=== PATIENT | female | born 1995 | race African-American/Black ===

== ENCOUNTER 2016-08-16 15:21 | Emergency (ER) | payer OTHER ==
[~2016-08-16] VITALS: Ht 190.5 cm; Wt 79.9 kg
[2016-08-16 15:25] VITALS: TEMP 36.9; Ht 190.5 cm; Wt 79.9 kg
[2016-08-16 16:30] LABS: BASO % 0.5 %; BASO ABS # 0.03 K/uL (0-0.2); COMPLETE YES; EOS % 1.7 %; HEMATOCRIT 33.5 % (37-47); IG% 0.3 %; LYMPH % 45.5 %; LYMPH ABS # 3.01 K/uL (1.2-3.4); MEAN CELL VOLUME 87.7 fL (80-100); MEAN CORPUSCULAR HEMOGLOBIN 30.6 pg (25-34); MEAN CORPUSCULAR HGB CONC 34.9 g/dl (32-36); MEAN PLATELET VOLUME 9.5 fL (7.4-10.4); MONO % 9.1 %; NEUT % 42.9 %; PLATELET COUNT 183 K/uL (130-400); RED BLOOD COUNT 3.82 M/uL (4.2-5.4); WHITE BLOOD COUNT 6.61 K/uL (4.8-10.8)
--- NOTE | 2016-08-16 16:36 | DIAGNOSTIC IMAGING REPORT ---
CT HEAD WITHOUT CONTRAST (CT) CLINICAL HISTORY: Left-sided visual loss COMPARISON STUDY: No previous studies for comparison. TECHNIQUE: Axial CT of the brain is performed from the vertex to the skull base. IV contrast was not administered for this examination. CT DOSE: 537.48 mGy.cm FINDINGS: No intra or extra-axial mass lesions are visualized. There is no CT evidence of acute cortical infarction. There is no evidence of midline shift. There is no acute hemorrhage. No calvarial fractures are visualized. The visualized portions of the orbits are unremarkable. There is no evidence of pathologic ventricular dilatation. There is no evidence of acute sinusitis Subtle decreased attenuation of the left external capsule, may be artifactual. It is unlikely to represent an acute finding IMPRESSION: No acute intracranial findings Electronically signed by: Odell Tom M.D. 08/16/2016 4:34 PM Dictated Date/Time: 08/16/2016 4:32 PM
[2016-08-16 16:48] LABS: INR 1.3 (0.9-1.1); PROTHROMBIN TIME (PATIENT) 13.8 SECONDS (9.0-12.0)
[2016-08-16 16:49] LABS: ALT/SGPT 57 U/L (12-78); BLOOD UREA NITROGEN 17 mg/dl (7-18); BUN/CREATININE RATIO 18.8 (10-20); CARBON DIOXIDE 27 mmol/L (21-32); CHLORIDE 106 mmol/L (98-107); CREATININE 0.91 mg/dl (0.60-1.20); GLUCOSE 82 mg/dl (70-99); POTASSIUM 3.6 mmol/L (3.5-5.1); SODIUM 139 mmol/L (136-145)
[2016-08-16 16:53] LABS: ALB/GLOB RATIO 0.8 (0.9-2); ALKALINE PHOSPHATASE 65 U/L (45-117); AST/SGOT 35 U/L (15-37)
--- NOTE | 2016-08-16 18:06 | DIAGNOSTIC IMAGING REPORT ---
MRI OF THE BRAIN WITHOUT CONTRAST CLINICAL HISTORY: Left eye visual loss.] Amorosis fugax. COMPARISON STUDY: Noncontrast CT scan dated 08/16/2016 FINDINGS: Sagittal T1, axial diffusion, proton density and T2 weighted axial, coronal FLAIR, and axial T1-weighted images were acquired. No intra or extra-axial mass lesions are visualized Axial diffusion-weighted images reveal no evidence of acute or subacute infarction. There is no evidence of ventricular dilatation. Proton density T2-weighted and FLAIR images reveal a nonspecific 4 mm focus of increased T2 signal within the left frontal white matter. There is a second 5 mm focus of increased signal within the left parietal white matter. There are no abnormal flow voids. IMPRESSION: 2 nonspecific subcentimeter foci of increased FLAIR signal within the left hemispheric white matter. Otherwise normal noncontrast MRI the brain. Electronically signed by: Odell Tom M.D. 08/16/2016 6:04 PM Dictated Date/Time: 08/16/2016 6:01 PM
[2016-08-16] MEDS ORDERED: OPTIRAY 320 IV PRN (19:15)
--- NOTE | 2016-08-16 20:00 | DIAGNOSTIC IMAGING REPORT ---
CT NECK ANGIO WITH CONTRAST CLINICAL HISTORY: Transient left eye visual loss COMPARISON STUDY: No previous studies for comparison. TECHNIQUE: CT angiography was performed from the aortic arch to the skull base. MIP imaging was performed. The patient was scanned in a dynamic helical fashion during intravenous administration of 115 cc of Optiray 320. CT DOSE: 548.40 mGy.cm Technique: CT angiogram of the carotid and vertebral arteries was obtained using intravenous contrast and 3-D reconstruction. NASCET criteria was utilized. Findings: The right carotid revealed no evidence of aneurysm and no evidence of dissection. There is no evidence of hemodynamic significant stenosis. The left carotid revealed no evidence of hemodynamic significant stenosis. There is no evidence of aneurysm. There is no evidence of dissection. There is no evidence of hemodynamically significant vertebral stenosis. There is no evidence of vertebral dissection. IMPRESSION: No evidence of hemodynamically significant carotid or vertebral artery stenosis. No evidence of dissection. Electronically signed by: Odell Tom M.D. 08/16/2016 7:58 PM Dictated Date/Time: 08/16/2016 7:55 PM
--- NOTE | 2016-08-16 20:02 | DIAGNOSTIC IMAGING REPORT ---
CT HEAD ANGIO WITH CONTRAST CLINICAL HISTORY: Transient left visual loss TECHNIQUE: CT angiography of the head was performed in a dynamic helical fashion during intravenous administration of 115 cc of Optiray 320. MIP imaging was performed CT DOSE: COMPARISON STUDY: Noncontrast head CT dated 08/16/2016 FINDINGS: There are no lesion suspicious for aneurysm. There are no major intracranial branch occlusions. The dural venous sinuses appear patent. IMPRESSION: Normal study. Electronically signed by: Odell Tom M.D. 08/16/2016 8:01 PM Dictated Date/Time: 08/16/2016 7:58 PM
--- NOTE | 2016-08-16 20:11 | EMERGENCY ROOM VISIT NOTE ---
History First contact with patient: 15:34 Chief Complaint: EYE ASSESSMENT Stated Complaint: EYE VISION TROUBLE History of Present Illness The patient is a 20 year old female who presents to the Emergency Room with complaints of 2 episodes of vision loss in the left eye. 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 She reports that a few weeks ago , she was getting ready for a cane when she lost the vision in the lower half of her left eye. She states that this area was completely black. This episode lasted for approximately 5 minutes, and then her vision will be returned. She reports that 2 days ago, she was at a concert when she again lost vision in the left eye. She reports that this time, she completely lost vision in the left eye. She states that it appeared black for approximately 5 minutes, then her vision returned. The patient has not had any headaches, blurred vision, slurred speech, facial drooping, numbness or weakness. She denies any symptoms at this time. She was evaluated by an pot feeder today who sent her here for further evaluation. She denies any history of vision problems and states that she has always had 20/20 vision. She believes that she was tested for sickle cell disease her freshman year at [employer]. She denies any history or family history of blood clotting disorders. She denies any significant past medical history. Review of Systems A complete 10-point Review of Systems was discussed with the patient, with pertinent positives and negatives listed in the History of Present Illness. All remaining Review of Systems questions can be considered negative unless otherwise specified. Social History Smoking Status: Never Smoker Alcohol Use: occasionally Marital Status: single Housing Status: lives with roommate Occupation Status: [employer] student Current/Historical Medications No Active Prescriptions or Reported Meds Allergies Coded Allergies: POLLEN (Unverified Allergy, Unknown, UNKNOWN, 08/16/16) Physical Exam Vital Signs Date Time Temp Pulse Resp B/P Pulse Ox O2 Delivery O2 Flow Rate FiO2 08/16/16 20:36 74 17 124/75 97 08/16/16 18:30 60 20 93/68 98 Room Air 08/16/16 15:25 36.9 49 18 103/55 100 Room Air Right Eye Acuity: 20/20 Left Eye Acuity: 20/20 Physical Exam VITALS: Vitals are noted on the nurse's note and reviewed by myself. Vital signs stable. GENERAL: This is a 20-year-old female, in no acute distress, nondiaphoretic, well-developed well-nourished. HEAD: Normocephalic atraumatic. EARS: External auditory canals clear, tympanic membranes pearly quinonez without erythema or effusion bilaterally. EYES: Pupils are fixed, dilated. Conjunctivae without injection, sclerae without icterus. Extraocular movements intact. Peripheral vision intact. MOUTH: Mucous membranes moist. Tonsils are not enlarged. Pharynx without erythema or exudate. NECK: Supple without nuchal rigidity. No lymphadenopathy. HEART: Regular rate and rhythm without murmurs gallops or rubs. LUNGS: Clear to auscultation bilaterally without wheezes, rales or rhonchi. MUSCULOSKELETAL: Full range of motion, strength 5/5 throughout. NEURO: Patient was alert and oriented to person place and time. Normal sensation to light and sharp touch. Deep tendon reflexes 2+ throughout. No focal neurological deficits. Medical Decision & Procedures ER Provider Diagnostic Interpretation: CT HEAD WITHOUT CONTRAST (CT) FINDINGS: No intra or extra-axial mass lesions are visualized. There is no CT evidence of acute cortical infarction. There is no evidence of midline shift. There is no acute hemorrhage. No calvarial fractures are visualized. The visualized portions of the orbits are unremarkable. There is no evidence of pathologic ventricular dilatation. There is no evidence of acute sinusitis Subtle decreased attenuation of the left external capsule, may be artifactual. It is unlikely to represent an acute finding IMPRESSION: No acute intracranial findings MRI OF THE BRAIN WITHOUT CONTRAST FINDINGS: Sagittal T1, axial diffusion, proton density and T2 weighted axial, coronal FLAIR, and axial T1-weighted images were acquired. No intra or extra-axial mass lesions are visualized Axial diffusion-weighted images reveal no evidence of acute or subacute infarction. There is no evidence of ventricular dilatation. Proton density T2-weighted and FLAIR images reveal a nonspecific 4 mm focus of increased T2 signal within the left frontal white matter. There is a second 5 mm focus of increased signal within the left parietal white matter. There are no abnormal flow voids. IMPRESSION: 2 nonspecific subcentimeter foci of increased FLAIR signal within the left hemispheric white matter. Otherwise normal noncontrast MRI the brain. CT NECK ANGIO WITH CONTRAST Findings: The right carotid revealed no evidence of aneurysm and no evidence of dissection. There is no evidence of hemodynamic significant stenosis. The left carotid revealed no evidence of hemodynamic significant stenosis. There is no evidence of aneurysm. There is no evidence of dissection. There is no evidence of hemodynamically significant vertebral stenosis. There is no evidence of vertebral dissection. IMPRESSION: No evidence of hemodynamically significant carotid or vertebral artery stenosis. No evidence of dissection. CT HEAD ANGIO WITH CONTRAST FINDINGS: There are no lesion suspicious for aneurysm. There are no major intracranial branch occlusions. The dural venous sinuses appear patent. IMPRESSION: Normal study. Laboratory Results 08/16/16 16:15 Red Blood Count 3.82, Mean Corpuscular Volume 87.7, Mean Corpuscular Hemoglobin 30.6, Mean Corpuscular Hemoglobin Concent 34.9, Mean Platelet Volume 9.5, Neutrophils (%) (Auto) 42.9, Lymphocytes (%) (Auto) 45.5, Monocytes (%) (Auto) 9.1, Eosinophils (%) (Auto) 1.7, Basophils (%) (Auto) 0.5, Neutrophils # (Auto) 2.84, Lymphocytes # (Auto) 3.01, Monocytes # (Auto) 0.60, Eosinophils # (Auto) 0.11, Basophils # (Auto) 0.03 08/16/16 16:15 Test 08/16/16 16:15 08/16/16 19:30 White Blood Count 6.61 K/uL (4.8-10.8) Red Blood Count 3.82 M/uL (4.2-5.4) Hemoglobin 11.7 g/dL (12.0-16.0) Hematocrit 33.5 % (37-47) Mean Corpuscular Volume 87.7 fL (80-100) Mean Corpuscular Hemoglobin 30.6 pg (25-34) Mean Corpuscular Hemoglobin Concent 34.9 g/dl (32-36) Platelet Count 183 K/uL (130-400) Mean Platelet Volume 9.5 fL (7.4-10.4) Neutrophils (%) (Auto) 42.9 % Lymphocytes (%) (Auto) 45.5 % Monocytes (%) (Auto) 9.1 % Eosinophils (%) (Auto) 1.7 % Basophils (%) (Auto) 0.5 % Neutrophils # (Auto) 2.84 K/uL (1.4-6.5) Lymphocytes # (Auto) 3.01 K/uL (1.2-3.4) Monocytes # (Auto) 0.60 K/uL (0.11-0.59) Eosinophils # (Auto) 0.11 K/uL (0-0.5) Basophils # (Auto) 0.03 K/uL (0-0.2) RDW Standard Deviation 39.8 fL (36.4-46.3) RDW Coefficient of Variation 12.4 % (11.5-14.5) Immature Granulocyte % (Auto) 0.3 % Immature Granulocyte # (Auto) 0.02 K/uL (0.00-0.02) Erythrocyte Sedimentation Rate 21 mm/hr (0-21) Sickle Cell Screen NEGATIVE (NEGATIVE) Prothrombin Time 13.8 SECONDS (9.0-12.0) Prothromb Time International Ratio 1.3 (0.9-1.1) Activated Partial Thromboplast Time 52.3 SECONDS (21.0-31.0) Partial Thromboplastin Ratio 2.0 Anion Gap 6.0 mmol/L (3-11) Est Creatinine Clear Calc Drug Dose 123.3 ml/min Estimated GFR () 104.5 Estimated GFR (Non- 90.2 BUN/Creatinine Ratio 18.8 (10-20) Calcium Level 9.0 mg/dl (8.5-10.1) Total Bilirubin 0.3 mg/dl (0.2-1) Aspartate Amino Transf (AST/SGOT) 35 U/L (15-37) Alanine Aminotransferase (ALT/SGPT) 57 U/L (12-78) Alkaline Phosphatase 65 U/L (45-117) Troponin I < 0.015 ng/ml (0-0.045) Total Protein 8.5 gm/dl (6.4-8.2) Albumin 3.8 gm/dl (3.4-5.0) Globulin 4.7 gm/dl (2.5-4.0) Albumin/Globulin Ratio 0.8 (0.9-2) Medical Decision Differential diagnosis includes CVA, TIA, retinal migraine, coagulation disorder , sickle cell disease, among others. The patient was evaluated as above. Labs were drawn and IV access was obtained. Imaging studies were performed and read by radiology as above. The patient was reassessed multiple times during their stay in the emergency department and remained in stable condition. The patient is a 20-year-old female who presents today sent by her pot feeder for evaluation of vision changes of the left eye. The patient describes 2 separate occasions of vision loss in her left eye. Labs revealed no leukocytosis. There was a mild anemia. No concerning electrolyte abnormalities. Coagulation studies were slightly elevated. CT scan of the head was unremarkable. MRI without contrast was also unremarkable. Given the patient's presentation, I was concerned about possible hypercoagulable disorder. For this reason, hypercoagulable panel and sickle cell screen were drawn and are pending. I did discuss this case with Dr. Duran, the neurologist forest economics professor. 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 The studies were performed and read by radiology and were negative. He did feel that the patient will need further outpatient workup including echocardiogram. I do agree that the patient will need further workup but I agree that this can be done as an outpatient given her negative workup today. Case was discussed with Dr. Sheppard, ED attending physician, who was in agreement with this assessment and treatment plan. All findings and treatment plan were discussed with the patient. She was instructed not to return to athletic activity until she was cleared by [facility] or her team doctor. She was instructed to follow-up with [facility] on Friday for further workup. She was instructed to return immediately if she has any further vision changes, headaches, numbness, weakness, facial drooping, blurred vision or slurred speech. She was instructed to begin a baby aspirin daily. The patient verbalized understanding of my assessment and treatment plan and was discharged home in good condition. Impression Primary Impression: Amaurosis fugax of left eye Departure Information Dispostion Home / Self-Care Condition GOOD Prescriptions No Active Prescriptions or Reported Meds Referrals No Doctor, Assigned (PCP) Patient Instructions My [facility] Additional Instructions Follow-up with your team doctor/[facility] on Friday for further evaluation. You will need further workup, including an echocardiogram and possibly other testing. We will notify you if any of your pending blood work is abnormal. No athletic activity until cleared by a primary care provider. Return to the nearest emergency department IMMEDIATELY if you develop any vision changes, headaches, numbness, weakness or any new/concerning symptoms.
[2016-08-16 20:36] VITALS: BP 124/75; PULSE 74; O2SAT 97
[2016-08-21 17:30] LABS: ANTITHROMBINIII ACTIVITY** 116 % activity (80-120); B2 GLYCOPROTEIN IGA 20 SAU (<=20); B2 GLYCOPROTEIN IGG 75 SGU (<=20); B2 GLYCOPROTEIN IGM 17 SMU (<=20); LUPUS ANTICOAGULANT** TC36573X Positive (Negative); PROTEIN C ACTIVITY** TC 1777X 113 % (70-180); PROTEIN S ACT(FUNCT)**1779X 87 % (60-140)
== END 2016-08-16 20:39 | disposition home or self-care (01) ==
LOC: C.EDD 15:23
DX: G45.3 Amaurosis fugax (principal); Z91.09 Other allergy status, other than to drugs and biological substances

== ENCOUNTER → 2016-08-28 | Outpatient (CLI) | payer OTHER ==
[2016-08-28 14:59] LABS: BASO % 0.4 %; BASO ABS # 0.03 K/uL (0-0.2); COMPLETE YES; EOS % 2.8 %; HEMATOCRIT 34.5 % (37-47); IG% 0.4 %; LYMPH % 41.3 %; LYMPH ABS # 2.78 K/uL (1.2-3.4); MEAN CORPUSCULAR HEMOGLOBIN 30.7 pg (25-34); MEAN CORPUSCULAR HGB CONC 35.7 g/dl (32-36); MEAN PLATELET VOLUME 9.4 fL (7.4-10.4); MONO % 7.1 %; PLATELET COUNT 216 K/uL (130-400); RED BLOOD COUNT 4.01 M/uL (4.2-5.4); WHITE BLOOD COUNT 6.73 K/uL (4.8-10.8)
[2016-08-28 15:02] LABS: ALT/SGPT 47 U/L (12-78); AST/SGOT 24 U/L (15-37); BLOOD UREA NITROGEN 15 mg/dl (7-18); BUN/CREATININE RATIO 16.6 (10-20); CALCIUM 9.4 mg/dl (8.5-10.1); CARBON DIOXIDE 27 mmol/L (21-32); CHLORIDE 105 mmol/L (98-107); GLUCOSE 93 mg/dl (70-99); POTASSIUM 3.9 mmol/L (3.5-5.1); SODIUM 139 mmol/L (136-145)
[2016-08-28 15:04] LABS: ALB/GLOB RATIO 0.8 (0.9-2); ALKALINE PHOSPHATASE 78 U/L (45-117)
[2016-08-28 15:11] LABS: INR 1.3 (0.9-1.1); PROTHROMBIN TIME (PATIENT) 13.5 SECONDS (9.0-12.0)
[2016-08-31 20:36] LABS: B2 GLYCOPROTEIN IGA 13 SAU (<=20); B2 GLYCOPROTEIN IGG 81 SGU (<=20); B2 GLYCOPROTEIN IGM 13 SMU (<=20); DRVVT MIX INTERPRETAION Positive; LAC PTT SCREEN 100 sec (<=40); PHOSPHATIDYLSERINE IGA <20 U/mL (<20); PHOSPHATIDYLSERINE IGG >100 U/mL (<10); PHOSPHATIDYLSERINE IGM <25 U/mL (<25)
[2016-09-03 07:10] LABS: DRVVT 1:1(REFLEX!DO NOT ORDER) NOT CORRECTED (CORRECTED); DRVVTNEUT(REFLEX!DO NOT ORDER) Positive (Negative); LUPUS ANTICOAGULANT** TC36573X Positive (Negative); THROMBIN TIME(REFLEX!DO NOTORD 18 sec (13-19)
== END | disposition home or self-care (01) ==
LOC: C.LAB1850 13:10
PROVIDERS: ATTEND Internal Medicine Hematology & Oncology
DX: D68.62 Lupus anticoagulant syndrome (principal)